=== PATIENT | female | born 1980 | race Caucasian/White ===

== ENCOUNTER 2024-01-21 09:31 | Observation (INO) ==
[2024-01-21] MEDS: NOZIN NASAL SANITIZER TP ONE (09:44)
[2024-01-21] MEDS: NS 100 ML IV 100 ML ONE (09:44)
[2024-01-21] MEDS: ANCEF VIAL 1 GRAM ONE (09:44)
[2024-01-21] MEDS: NS 1,000 ML IV 1,000 ML ONE (09:45)
[2024-01-21] MEDS ORDERED: ULTANE GAS IN ONE (11:00)
[2024-01-21] MEDS: VERSED ONE (11:35)
[2024-01-21] MEDS: BETADINE SOLN ONE (11:35)
[2024-01-21] MEDS: ROBINUL ONE (11:35)
[2024-01-21] MEDS: FENTANYL VIAL INJ 100 mcg ONE (11:35)
[2024-01-21] MEDS: XYLOCAINE 2 % (PLAIN) ONE (11:35)
[2024-01-21] MEDS: ZOFRAN INJ 4 MG VIAL ONE (11:35)
[2024-01-21] MEDS: REGLAN INJ 10 MG VIAL ONE (11:35)
[2024-01-21] MEDS: PEPCID 20 MG VIAL ONE (11:35)
[2024-01-21] MEDS: DIPRIVAN VIAL 20 ML ONE (11:35)
[2024-01-21] MEDS: VANCOMYCIN HCL ONE ×2 (11:35→11:56)
[2024-01-21] MEDS: KETAMINE 50 MG/5 ML-NACL SYRNG ONE (11:35)
[2024-01-21] MEDS: MARCAINE 0.25% INJ ONE (11:56)
[2024-01-21] MEDS: TOBRAMYCIN SULFATE ONE (11:56)
[2024-01-21] MEDS: OFIRMEV IV 1000 MG VIAL 1,000 MG/100 ML VIAL IV ONE (12:01)
[2024-01-21] MEDS: EPHEDRINE SULFATE INJ ONE (12:14)
[2024-01-21] MEDS: CLEOCIN 600 MG IV PREMIX 600 MG/50 ML BAG IV ONE (12:19)
[2024-01-21] MEDS ORDERED: ZOFRAN INJ 4 MG VIAL IVP PRN ×2 (12:40→12:53)
[2024-01-21] MEDS ORDERED: TYLENOL 325 MG TAB PO PRN (12:40)
[2024-01-21] MEDS ORDERED: BENADRYL INJ 50 MG VIAL IVP PRN (12:53)
[2024-01-21] MEDS ORDERED: DILAUDID INJ IVP PRN (12:53)
[2024-01-21 13:14] VITALS: BMI 46.3
[2024-01-21] MEDS: NS 1,000 ML IV 1,000 ML IV SCH (13:58)
[2024-01-21] MEDS: VANCOMYCIN IV *PREMIX 1 G/200 ML BAG 1 G/200 ML PIGGYBACK IV SCH (14:00)
[2024-01-21] MEDS: COLACE CAP 100 MG PO SCH (22:20)
[2024-01-21] MEDS: NOZIN NASAL SANITIZER TP SCH (22:22)
[2024-01-21] MEDS: NovoLIN R (or HumuLIN R) SUBCUT PRN (23:30)
[2024-01-22 06:55] LABS: BLOOD UREA NITROGEN 13 mg/dL (7-18); CALCIUM 8.2 mg/dL (8.5-10.1); CARBON DIOXIDE 26.3 mmol/L (21-32); CHLORIDE 99 mmol/L (98-107); COR NA(FOR HYPERGLY) 137 mmol/L (136-145); CREATININE 0.82 mg/dL (0.55-1.02); GLUCOSE 193 mg/dL (65-99); POTASSIUM 3.7 mmol/L (3.5-5.1); SODIUM 135 mmol/L (136-145); eGFR NON BLACK RACES > 60 (>60)
--- NOTE | 2024-01-22 08:16 | NOTE.SOAP ---
Soap Note Note for Day of Date of Exam: 01/22/24 Subjective Data Subjective Data: Patient is POD#1 incision and drainage left foot and hardware removal with now wound to medial first mpj. She is wanting to go home. Denies any [place], vomiting, fevers, chills, shortness of breth, chest pain. Objective Data Objective Data: Left Lower Extremity Exam: Wound measuing 3 cm x 2 cm x 0.5 cm to medial first MPJ. I tried to express and surrounding purulence from the wound edges, non was present. Start of granular tissue is present. Antibiotic wafer is present. Minimal bone present. Minimal surrounding erythema to wound edges. CFT is WNL to the hallux. Assessment Assessment: 43 year old DM, tobacco user Female POD#1 incision and drainage to bone, left foot with hardware removal and insertion of antibiotic eluding device Plan Plan: - HWB to LLE - Cultures are showing many gram-negative cocci, awaiting final results. - On broad spectrum antibiotics currently. - We discussed wound vac with graft placement vs. filet toe flap of the hallux - Patient is wanting to try and save the toe at all costs. We will move forward with debridement and graft application with vac placement. - Will follow cultures and de-escalate antibiotics appropriately. - NPO after midnight.
[2024-01-22] MEDS: LOVENOX INJ 40 MG SYR SC SCH (08:31)
[2024-01-22] MEDS: VANCOMYCIN IV *PREMIX 1 G/200 ML BAG 1 G/200 ML PIGGYBACK IV SCH (08:31)
[2024-01-22] MEDS ORDERED: LASIX PO PRN (09:20)
[2024-01-22 09:22] LABS: BASOPHILS # (AUTO) 0.1 X10^3/uL (0.0-0.1); BASOPHILS % (AUTO) 2.2 % (0.2-1.0); EOSINOPHILS # (AUTO) 0.1 x10^3/uL (0.0-0.2); EOSINOPHILS % (AUTO) 2.3 % (0.9-2.9); HEMATOCRIT 28.7 % (36.0-47.0); HEMOGLOBIN 9.2 g/dL (12.0-16.0); LYMPHOCYTES # (AUTO) 0.8 X10^3/uL (1.3-2.9); LYMPHOCYTES % (AUTO) 14.5 % (21.0-51.0); MEAN CORPUSCULAR HEMOGLOBIN 24.6 pg (27.0-34.0); MEAN CORPUSCULAR HGB CONC 32.1 g/dL (33.0-35.0); MEAN CORPUSCULAR VOLUME 76.4 fL (80.0-100.0); MEAN PLATELET VOLUME 7.6 fL (7.4-11.0); MONOCYTES # (AUTO) 0.4 x10^3/uL (0.3-0.8); MONOCYTES % (AUTO) 6.3 % (0.0-13.0); NEUTROPHILS # (AUTO) 4.3 x10^3/uL (2.2-4.8); NEUTROPHILS % (AUTO) 74.7 % (42.0-75.0); PLATELET COUNT 362 X10^3/uL (150.0-450.0); RED BLOOD COUNT 3.76 X10^6/uL (3.5-5.4); RED CELL DISTRIBUTION WIDTH 18.6 % (11.6-16.5); WHITE BLOOD COUNT 5.8 X10^3/uL (3.6-10.0)
[2024-01-22] MEDS ORDERED: PATIENT'S HOME MEDICATION (Fluticasone-Umeclidin-Vilanter [Trelegy Ellipta] 100-62.5-25 mc IN SCH (09:30)
[2024-01-22] MEDS: K-DUR TAB 20 MEQ PO SCH (09:30)
[2024-01-22] MEDS ORDERED: PULMICORT NEB TX 0.5 MG NEB SCH (09:45)
[2024-01-22] MEDS ORDERED: DUONEB 0.5 MG/3 MG (3 mL) NEB SCH (10:00)
[2024-01-22] MEDS: GLUCOPHAGE PO SCH (10:08)
[2024-01-22] MEDS: ASPIRIN EC 81 MG PO SCH (10:08)
[2024-01-22] MEDS: ZESTRIL TAB 40 MG PO SCH (10:09)
[2024-01-22] MEDS: PROTONIX TAB 40 MG PO SCH (10:09)
[2024-01-22] MEDS: COREG TAB 25 MG PO SCH (10:12)
[2024-01-22] MEDS: PERCOCET TAB 5/325 MG PO PRN (10:28)
[2024-01-22] MEDS: TRESIBA U-100 INSULIN SC SCH (11:32)
[2024-01-22 20:14] LABS: CREATININE 0.76 mg/dL (0.55-1.02); VANCOMYCIN,TROUGH 4.3 ug/mL (15-20)
[2024-01-22] MEDS: ALPRAZOLAM ODT PO SCH (21:17)
[2024-01-22] MEDS: MORPHINE SULFATE INJ 10 MG ONE (21:55)
[2024-01-22] MEDS: GLUCOPHAGE ONE ×2 (21:55→21:56)
[2024-01-22] MEDS: CONSULT PHARMACY - POTASSIUM & MAGNESIUM XX SCH (21:56)
[2024-01-23] MEDS: SNACK - Diabetic Appropriate PO SCH (00:49)
[2024-01-23] MEDS: PHARMACY COMMENT IV ONE ×2 (00:50→14:21)
[2024-01-23] MEDS: HIBICLENS WASH EXT ONE (04:44)
[2024-01-23 05:03] VITALS: RESP 20
[2024-01-23 06:07] LABS: BASOPHILS % (AUTO) 0.6 % (0.2-1.0); EOSINOPHILS # (AUTO) 0.4 x10^3/uL (0.0-0.2); EOSINOPHILS % (AUTO) 4.8 % (0.9-2.9); HEMATOCRIT 26.8 % (36.0-47.0); HEMOGLOBIN 8.8 g/dL (12.0-16.0); LYMPHOCYTES # (AUTO) 2.4 X10^3/uL (1.3-2.9); LYMPHOCYTES % (AUTO) 27.6 % (21.0-51.0); MEAN CORPUSCULAR HEMOGLOBIN 25.3 pg (27.0-34.0); MEAN CORPUSCULAR HGB CONC 32.9 g/dL (33.0-35.0); MEAN CORPUSCULAR VOLUME 76.9 fL (80.0-100.0); MEAN PLATELET VOLUME 7.4 fL (7.4-11.0); MONOCYTES # (AUTO) 0.8 x10^3/uL (0.3-0.8); MONOCYTES % (AUTO) 8.7 % (0.0-13.0); NEUTROPHILS # (AUTO) 5.2 x10^3/uL (2.2-4.8); NEUTROPHILS % (AUTO) 58.3 % (42.0-75.0); PLATELET COUNT 371 X10^3/uL (150.0-450.0); RED BLOOD COUNT 3.49 X10^6/uL (3.5-5.4); RED CELL DISTRIBUTION WIDTH 18.3 % (11.6-16.5); WHITE BLOOD COUNT 8.8 X10^3/uL (3.6-10.0)
[2024-01-23] MEDS: D50W ABBOJECT SYR IV ONE (06:33)
[2024-01-23] MEDS: D50W ABBOJECT SYR ONE (07:19)
[2024-01-23] MEDS: GLUCOPHAGE ONE (07:20)
[2024-01-23] MEDS: NS 1,000 ML IV 1,000 ML ONE (10:57)
[2024-01-23] MEDS: NS 100 ML IV 100 ML ONE (11:10)
[2024-01-23] MEDS: ANCEF VIAL 1 GRAM ONE (11:10)
[2024-01-23] MEDS: DIPRIVAN VIAL 20 ML ONE (11:28)
[2024-01-23] MEDS: FENTANYL VIAL INJ 100 mcg ONE (11:28)
[2024-01-23] MEDS: BETADINE SOLN ONE (11:28)
[2024-01-23] MEDS ORDERED: KETAMINE HCL ONE (11:28)
[2024-01-23] MEDS: VERSED ONE (11:28)
[2024-01-23] MEDS: TOBRAMYCIN SULFATE ONE (11:40)
[2024-01-23] MEDS: VANCOMYCIN HCL ONE (11:40)
[2024-01-23] MEDS: MARCAINE 0.25% INJ ONE (11:41)
[2024-01-23 15:59] VITALS: PULSE 61
[2024-01-23 16:01] VITALS: BP 123/59; TEMP 97.6; O2SAT 96
== END 2024-01-23 16:10 | disposition home or self-care (01) ==
LOC: SURG1 09:31 → INTOOBSV 12:40 → MED/SURG 13:10
PROVIDERS: ADMIT Obstetrics & Gynecology Obstetrics; ATTEND Obstetrics & Gynecology Obstetrics
PROC: HARDREM (ICD-10-PCS; 2024-01-21 11:10)
PROC: DEBRIDE (2024-01-23 16:30)